=== PATIENT | female | born 1990 | race Caucasian/White ===

== ENCOUNTER 2017-09-02 14:10 | Inpatient (IN) | payer OTHER ==
[2017-09-02] MEDS ORDERED: MISOPROSTOL 200 MCG TAB PR (15:00)
[2017-09-02] MEDS ORDERED: BUTORPHANOL 2 MG INJ IV (15:00)
[2017-09-02] MEDS ORDERED: AMPICILLIN 2 GM/NS (PMX) 100 ML IV (15:00)
[2017-09-02] MEDS ORDERED: LIDOCAINE 1% (MPF) 30 ML INJ INJ (15:00)
[2017-09-02] MEDS ORDERED: METHYLERGONOVINE 0.2 MG INJ IM (15:00)
[2017-09-02] MEDS ORDERED: OXYTOCIN 30 UNITS/LR 500 ML IV (15:00)
[2017-09-02] MEDS ORDERED: CARBOPROST 250 MCG INJ IM (15:00)
[2017-09-02] MEDS: LACTATED RINGER'S 1,000 ML IV* ×2 (15:42→23:34)
[2017-09-02 16:50] LABS: ADD MAN DIFF? NO
[2017-09-02 16:56] LABS: BASOPHILS % 0.3 % (0.0-2.0); EOSINOPHILS % 0.2 % (0.0-7.0); HEMATOCRIT 41.9 % (37.0-47.0); LYMPHOCYTES # 2.1 10^3/ul (0.8-2.9); LYMPHOCYTES % 24.2 % (15.0-51.0); MEAN CORPUSCULAR HEMOGLOBIN 30.8 pg (29.0-33.0); MEAN CORPUSCULAR HGB CONC 33.4 g/dl (32.0-37.0); MEAN CORPUSCULAR VOLUME 92.3 fl (82.0-101.0); MEAN PLATELET VOLUME 12.5 fl (7.4-10.4); MONOCYTE # 0.5 10^3/ul (0.3-0.9); MONOCYTES % 5.2 % (0.0-11.0); NEUTROPHILS % 69.5 % (39.0-77.0); PLATELET COUNT 158 10^3/UL (140-415); RED BLOOD COUNT 4.54 10^6/ul (4.20-5.40); RED CELL DISTRIBUTION WIDTH 13.5 % (11.5-14.5)
[2017-09-02 16:56] LABS: WHITE BLOOD COUNT 8.7 10^3/ul (4.8-10.8)
[2017-09-02 17:15] LABS: INR 0.85; PROTIME 11.7 Sec (11.9-14.9); PT RATIO 0.9
[2017-09-02 17:16] LABS: PARTIAL THROMBOPLASTIN TIME 27.2 Sec (25.0-35.0)
[2017-09-02 17:27] LABS: ADD UMIC YES; UR ASCORBIC ACID 40 mg/dL (NEGATIVE); UR BACTERIA FEW /HPF (NONE SEEN); UR BILIRUBIN (Dip) NEGATIVE (NEGATIVE); UR BLOOD (Dip) NEGATIVE (NEGATIVE); UR CLARITY CLEAR (CLEAR); UR COLOR YELLOW (YELLOW); UR GLUCOSE (Dip) NEGATIVE (NEGATIVE); UR KETONES (Dip) TRACE mg/dL (NEGATIVE); UR LEUKOCYTE ESTERASE (Dip) TRACE Leu/ul (NEGATIVE); UR MUCUS FEW /HPF (NONE SEEN); UR NITRITE (Dip) NEGATIVE (NEGATIVE); UR RBC 1 /HPF (0-5); UR SPECIFIC GRAVITY (Dip) 1.018 (1.003-1.030); UR SQUAMOUS EPITHELIAL CELL FEW /HPF (FEW); UR TOTAL PROTEIN (Dip) NEGATIVE (NEGATIVE); UR UROBILINOGEN (Dip) 1+ mg/dL (NEGATIVE); UR WBC 5 /HPF (0-5)
[2017-09-02] MEDS: OXYTOCIN 30 UNITS/LR 500 ML IV (17:30)
[2017-09-02 17:41] LABS: HEPATITIS B SURFACE ANTIGEN NEGATIVE (NEGATIVE)
[2017-09-02 17:54] LABS: HIV 1&2 ANTIBODY NEGATIVE (NEGATIVE)
[2017-09-02] MEDS ORDERED: AMPICILLIN 1 GM/NS (PMX) 50 ML IV (19:00)
[2017-09-02 21:33] LABS: RAPID PLASMA REAGIN NONREACTIVE (NR)
[2017-09-02] MEDS: LACTATED RINGER'S 1,000 ML IV (22:40)
[2017-09-02] MEDS ORDERED: FENTAnyl 2MCG/ML-ROPIV 0.2% 100 ML (23:59)
[2017-09-03] MEDS ORDERED: NALOXONE (0.4 MG/ML) INJ IV (00:30)
[2017-09-03] MEDS: LACTATED RINGER'S 1,000 ML IV* (04:34)
[2017-09-03] MEDS: FENTAnyl 2MCG/ML-ROPIV 0.2% 100 ML BAG EPI (05:35)
[2017-09-03] MEDS: OXYTOCIN 30 UNITS/LR 500 ML IV ×2 (05:35→05:36)
[2017-09-03] MEDS: IBUPROFEN 600 MG TAB PO ×4 (06:09→23:55)
[2017-09-03] MEDS ORDERED: ZOLPIDEM 5 MG TAB PO (08:30)
[2017-09-03] MEDS ORDERED: CARBOPROST 250 MCG INJ IM (08:30)
[2017-09-03] MEDS ORDERED: OXYTOCIN 30 UNITS/LR 500 ML IV (08:30)
[2017-09-03] MEDS ORDERED: METHYLERGONOVINE 0.2 MG INJ IM (08:30)
[2017-09-03] MEDS ORDERED: MISOPROSTOL 200 MCG TAB PR (08:30)
[2017-09-03] MEDS: SENNA/DOCUSATE NA (8.6MG/50MG) TAB PO ×2 (09:43→23:54)
[2017-09-03] MEDS: OXYCODONE/ASPIRIN (4.88/325) TAB PO ×2 (09:43→14:16)
[2017-09-03] MEDS: WITCH HAZEL/GLYCERIN PAD PR (10:33)
[2017-09-03] MEDS: LANOLIN 7 GM TUBE TOP (10:33)
[2017-09-03] MEDS: BENZOCAINE 20% 56 ML SPRAY TOP (10:33)
[2017-09-04] MEDS: IBUPROFEN 600 MG TAB PO ×4 (05:40→23:32)
[2017-09-04] MEDS: SENNA/DOCUSATE NA (8.6MG/50MG) TAB PO ×2 (08:57→21:10)
[2017-09-04 09:31] LABS: ADD MAN DIFF? NO
[2017-09-04 09:33] LABS: WHITE BLOOD COUNT 7.2 10^3/ul (4.8-10.8)
[2017-09-04 09:33] LABS: BASOPHILS % 0.3 % (0.0-2.0); EOSINOPHILS # 0.1 10^3/ul (0.0-0.5); EOSINOPHILS % 1.1 % (0.0-7.0); HEMATOCRIT 37.5 % (37.0-47.0); HEMOGLOBIN 12.3 g/dl (12.0-16.0); LYMPHOCYTES % 27.9 % (15.0-51.0); MEAN CORPUSCULAR HEMOGLOBIN 30.8 pg (29.0-33.0); MEAN CORPUSCULAR HGB CONC 32.8 g/dl (32.0-37.0); MEAN PLATELET VOLUME 12.3 fl (7.4-10.4); MONOCYTE # 0.4 10^3/ul (0.3-0.9); MONOCYTES % 5.4 % (0.0-11.0); NEUTROPHIL # 4.7 10^3/ul (1.6-7.5); PLATELET COUNT 126 10^3/UL (140-415); RED BLOOD COUNT 3.99 10^6/ul (4.20-5.40); RED CELL DISTRIBUTION WIDTH 13.5 % (11.5-14.5)
[2017-09-04] MEDS: BENZOCAINE 20% 56 ML SPRAY TOP (13:44)
[2017-09-05] MEDS: IBUPROFEN 600 MG TAB PO ×2 (05:38→12:20)
[2017-09-05] MEDS: SENNA/DOCUSATE NA (8.6MG/50MG) TAB PO (08:58)
[2017-09-05] MEDS: DIPHTH/TET/ACEL PERTUSS (ADULT) 0.5 ML VIAL IM* (09:00)
[2017-09-05 10:51] LABS: RUBELLA ANTIBODY - IGG <0.90 index
[2017-09-05] MEDS: BENZOCAINE 20% 56 ML SPRAY TOP (12:20)
[2017-09-05] MEDS: LANOLIN 7 GM TUBE TOP (12:20)
[2017-09-05] MEDS: WITCH HAZEL/GLYCERIN PAD PR (12:20)
[2017-09-05 12:26] LABS: RUBELLA ANTIBODY - IGM <20.00 AU/mL
== END 2017-09-05 14:00 | disposition home or self-care (01) | DRG 775 ==
LOC: OBT 14:10 → L-D 14:11 → PP1 09-03 08:34 → OBT 14:43 → L-D 14:43
PROC: 10E0XZZ Delivery of Products of Conception, External Approach (ICD-10-PCS; principal; 2017-09-02)
PROC: 0KQM0ZZ Repair Perineum Muscle, Open Approach (ICD-10-PCS; 2017-09-02)
PROC: 3E033VJ Introduction of Other Hormone into Peripheral Vein, Percutaneous Approach (ICD-10-PCS; 2017-09-02)
DX: O48.0 Post-term pregnancy (principal); Z3A.40 40 weeks gestation of pregnancy; O70.1 Second degree perineal laceration during delivery; Z37.0 Single live birth
CPT/HCPCS: 62319; 76815; 76818; 81001; 85025; 85610; 85730; 86592; 86703; 86762; 86885; 86900; 86901; 87340; 99464